=== PATIENT | female | born 1985 | race Caucasian/White ===

== ENCOUNTER → 2018-06-02 09:30 | Outpatient (CLI) | payer OTHER, SELFPAY ==
[2018-06-02 10:45] LABS: HCG Quantitative /Beta subunit 3.94 mIU/mL
== END ==
PROVIDERS: PCP Nurse Practitioner Family; Visit Provider Specialist
DX: N92.6 Irregular menstruation, unspecified (principal); Z32.01 Encounter for pregnancy test, result positive
CPT/HCPCS: 36415; 84702

== ENCOUNTER 2018-07-01 06:36 | Day surgery (SDC) | payer OTHER, SELFPAY ==
[2018-06-29 07:51] VITALS: BMI 24.7
--- NOTE | 2018-07-01 | PATH_ITS ---
[facility] Accession Number: [id number] . 01 Material submitted: . ENDOMETRIAL BIOPSY . 02 Diagnosis: Endometrium, Biopsy: Secretory endometrium with no evidence of neoplasia or hyperplasia. A few thick-walled vessels suggestive of polyp are present. MRV/07/04/2018 . 02 Electronically signed: . Lida Khan MD, Pathologist NPI- [id number] . 01 Gross description: . Received one formalin-filled container labeled with the patient's name and labeled endometrial biopsy. The specimen consists of approximately a 4 cc aggregate of tissue, mucoid material, and blood, which is filtered, wrapped, and entirely submitted in two cassettes. ([id number]) /FRR . 02 Pathologist provided ICD-10: N93.9 . 02 CPT . 892416 Performed at: 01 [facility] [address] [id number] MD Wyatt Ch MD Phone: [phone] Performed at: 02 [facility] [address] [place], [place] [id number] MD Lida Khan MD Phone: [phone]
[2018-07-01 07:05] VITALS: BMI 23.8
[2018-07-01 07:09] VITALS: BP 120/85; PULSE 77; RESP 15; TEMP 36.3; O2SAT 99
[2018-07-01] MEDS: LACTATED RINGERS 1,000 ML 42 ML IV (07:17)
--- NOTE | 2018-07-01 07:18 | PM.PREOP ---
Pre-operative Note Interval Note History & Physical reviewed/Exam performed by Physician: Yes Changes to H&P: No H&P completed within 30 days and has changed as indicated here:: see 06/22/18 out pt note
--- NOTE | 2018-07-01 07:24 | SUR.OPER ---
Lithotomy on padded OR bed, head on pillow, arms secured on padded arm boards at <90 degrees abduction. Legs secured in padded yellow fins stirrups.
[2018-07-01 08:31] VITALS: BP 111/77; PULSE 82; RESP 16; TEMP 36.4; O2SAT 100
[2018-07-01 08:36] VITALS: BP 122/87; PULSE 82; RESP 18; O2SAT 99
[2018-07-01 08:41] VITALS: BP 120/86; PULSE 77; RESP 14; TEMP 36.4; O2SAT 100
[2018-07-01 08:46] VITALS: BP 121/82; PULSE 79; RESP 14; O2SAT 100
--- NOTE | 2018-07-01 08:59 | PM.GYNOP.1 ---
Operative Date/Time/Diagnoses Date of procedure: 07/01/18 Time of procedure: 08:59 Pre-op diagnosis: Menorrhagia post miscarriage Post-op diagnosis: same Procedure: Procedures Operation Date: 07/01/18 07:45 Actual Procedures Side Surgeon p Hysteroscopy D&C Mini Dumont MD Indications: Heavy, prolonged bleeding after miscarriage Surgeon: Mini Dumont Anesthesia Type: General Operative Notes Findings: Probable retained products of conception Closure Type: not applicable Specimen(s): endometrial curettings (And resection of area of probable retained products of conception) Estimated blood loss (mL): 5 Blood products transfused: none Procedure in detail: The patient was brought to the operating room where she underwent general anesthesia. She was placed in low stirrups She was prepped and draped in usual sterile fashion with pulsatile stockings in place and functional, warming in place. No antibiotics were indicated. She was not catheterized as she had just emptied her bladder.. A single-tooth tenaculum was placed on the anterior lip of the cervix and the uterus dilated to #8 Hegar dilator. The hysteroscope was placed into the uterus with a sorbitol solution running and under constant suction. The resecting loop set at 70 W of cutting was used to resect the area of presumed retained products of conception. Care was taken not to remove too much normal endometrium. A endometrial curettage was performed. The fibroid and the endometrial curettage was sent to pathology. The patient went to recovery room in good condition counts of instruments and sponges were correct. Estimated blood loss less than 5 mL. The sorbitol solution I=O approximately 3000 mL. Complications: none Post-operative Condition: stable Disposition: same day surgery Plan for aftercare: Home when awake and stable, follow-up in 2 weeks unless she has bleeding fever or increasing pain
[2018-07-01 09:10] VITALS: BP 118/82; PULSE 80; RESP 15; TEMP 36.3; O2SAT 100
== END 2018-07-01 09:13 | disposition home or self-care (01) ==
PROVIDERS: PCP Nurse Practitioner Family; Visit Provider Specialist
PROC: 0UDB8ZZ Extraction of Endometrium, Via Natural or Artificial Opening Endoscopic (ICD-10-PCS; CPT 58558; principal; 2018-07-01 07:45)
DX: N93.9 Abnormal uterine and vaginal bleeding, unspecified (principal); F41.9 Anxiety disorder, unspecified
CPT/HCPCS: 58558; J1100; J1885; J2405; J2704

== ENCOUNTER → 2018-08-11 15:45 | Outpatient (CLI) | payer OTHER, SELFPAY | PROVIDERS: Visit Provider Specialist | DX: Z34.81 Encounter for supervision of other normal pregnancy, first trimester (principal) | CPT/HCPCS: 36415; 84702 ==

== ENCOUNTER → 2018-08-13 12:01 | Outpatient (CLI) | payer OTHER, SELFPAY ==
[2018-08-13 13:12] LABS: HCG Quantitative /Beta subunit 6000.1 mIU/mL
== END ==
PROVIDERS: Visit Provider Specialist
DX: Z34.81 Encounter for supervision of other normal pregnancy, first trimester (principal)
CPT/HCPCS: 36415; 84702

== ENCOUNTER → 2018-08-31 16:03 | Outpatient (CLI) | payer OTHER, SELFPAY ==
[2018-08-31 20:17] LABS: Urine N gonorrhoeae NOT DETECTED
[2018-08-31 20:25] LABS: Urine Chlamydia NOT DETECTED
== END ==
PROVIDERS: Visit Provider Specialist
DX: Z34.81 Encounter for supervision of other normal pregnancy, first trimester (principal); Z3A.01 Less than 8 weeks gestation of pregnancy
CPT/HCPCS: 87491; 87591

== ENCOUNTER → 2018-09-15 08:50 | Outpatient (CLI) | payer OTHER, SELFPAY ==
[2018-09-15 09:55] LABS: Add Manual Diff / Slide Review NO; Basophils Absolute Auto 0 /uL (0-100); Basophils Percent Auto 0.6 % (0-2); Eosinophils Absolute Auto 0 /uL (0-450); Eosinophils Percent Auto 0.7 % (2-4); Hematocrit 36.3 % (36-46); Hemoglobin 12.8 g/dL (12.0-16.0); Lymphocytes Absolute Auto 1300 /uL (1100-4500); Lymphocytes Percent Auto 28.5 % (25-40); Mean Corpuscular HGB Conc 35.3 % (30-36); Mean Corpuscular Volume 87.8 fL (80-100); Monocytes Absolute Auto 400 /uL (0-900); Monocytes Percent Auto 8.5 % (3-14); Neutrophils Absolute Auto 2900 /uL (1500-7000); Neutrophils Percent Auto 61.7 % (50-75); Platelet Count 247 X10^3/uL (150-400); Red Blood Cell Count 4.13 X10^6/uL (4.0-5.2); Red Cell Distribution Width 13.6 % (11.6-14.8); White Blood Cell Count 4.7 X10^3/uL (4.5-11.0)
[2018-09-15 11:29] LABS: Hepatitis B Surface Antigen NEGATIVE s/c (NEGATIVE); Rubella Antibody IgG 59.6 IU/mL (>15)
[2018-09-15 11:43] LABS: HIV 1 and 2 Antibody NEGATIVE (NEGATIVE); Hep C Virus Ab w/Reflex Quant NEGATIVE s/c (NEGATIVE)
[2018-09-15 13:12] LABS: Appearance Urine UA CLEAR; Bilirubin Urine UA NEGATIVE (NEGATIVE); Color Urine UA YELLOW; Glucose Urine UA NEGATIVE (Negative); Ketones Urine UA 3+ (NEGATIVE); Leukocyte Esterase Urine UA NEGATIVE (NEGATIVE); Nitrite Urine UA NEGATIVE (Negative); Occult Blood Urine UA 2+ (Negative); Protein Urine UA NEGATIVE (Negative); Specific Gravity Urine UA 1.015 (1.000-1.035); Urobilinogen Urine UA 0.2 E.U./dL (0.2)
[2018-09-17 13:22] LABS: RPR Screen Nonreactive (Nonreactive)
[2018-09-30 15:20] LABS: Informaseq SEE SEPARATE REPORTS
== END ==
PROVIDERS: Visit Provider Specialist
DX: O09.529 Supervision of elderly multigravida, unspecified trimester (principal)
CPT/HCPCS: 36415; 80055; 81003; 81507; 86703; 86787; 86803; 86850; 86900; 86901; 87086

== ENCOUNTER → 2018-09-29 13:30 | Oncology outpatient (ONC) | payer OTHER, SELFPAY ==
[2018-09-15 10:39] VITALS: BP 112/76; PULSE 82; RESP 20; TEMP 36.7; O2SAT 99
[2018-09-15] MEDS: LACTATED RINGERS 1,000 ML 500 ML IV (10:47)
[2018-09-15] MEDS: ONDANSETRON 4 MG/2 ML INJ IV (10:49)
[2018-09-29] MEDS: ONDANSETRON 8 MG in SODIUM CHLORIDE 0.9% 50 ML 216 ML IV (14:27)
[2018-09-29] MEDS: DEXTROSE 5%-LACTATED RINGERS 1,000 ML 500 ML IV ×2 (14:27→17:15)
--- NOTE | 2018-09-29 17:15 | PC.NURSE ---
Addendum entered by Annie Raza R.N. 09/29/18 19:49: Second bag of fluid infused. Pt reports feeling better, denies nausea. IV discontinued. Pt ambulated off floor to main parking lot with this RN. Denies dizziness. Original Note: Patient to from oncology, ambulated to room. Oriented to room/call light. First bag of fluids finished and second started.
== END ==
PROVIDERS: PCP Nurse Practitioner Family; Visit Provider Specialist
DX: O21.0 Mild hyperemesis gravidarum (principal); Z3A.11 11 weeks gestation of pregnancy
CPT/HCPCS: 36415; 80055; 81003; 81507; 86703; 86787; 86803; 86850; 86900; 86901; 87086; 96365; 96366; 96375; J2405; J7121

== ENCOUNTER → 2018-11-02 16:38 | Outpatient (CLI) | payer OTHER, SELFPAY ==
[2018-11-07 10:56] LABS: AFP, Serum 53.1 ng/mL; Calc Gestational Age 16.9; Cigarette Smoker N; Donated Egg NOT GIVEN; Donor Egg Age NOT GIVEN; Estriol, Free 0.93 ng/mL; Inhibin A, Dimeric 284 pg/mL; Maternal Weight 134 lbs; Number of Fetuses NOT GIVEN; Previous Pregnancy Down Syndro NOT GIVEN; hCG, MoM 1.46; hCG, Serum 45.5 IU/mL
== END ==
PROVIDERS: PCP Nurse Practitioner Family; Visit Provider Specialist
DX: Z34.02 Encounter for supervision of normal first pregnancy, second trimester (principal); Z3A.16 16 weeks gestation of pregnancy
CPT/HCPCS: 36415; 82105; 82677; 84702; 86336

== ENCOUNTER → 2018-11-25 10:13 | Outpatient (CLI) | payer OTHER, SELFPAY ==
--- NOTE | 2018-11-25 10:15 | DI.US.S_ITS ---
PROCEDURE: US OB >= 14 WEEKS FETUS INDICATIONS: ANATOMY SCAN OUTSIDE/PRIOR DATING DATA: Last menstrual period (LMP): Unknown. LMP-based estimated date of delivery (TAMMY): N./A.. First dating scan (date and location): 08/31/18. Estimated date of delivery (TAMMY) from first dating scan: 04/11/19. TECHNIQUE: Real-time scanning was performed of the fetus, with image documentation and biometric measurements. Endovaginal scanning: No COMPARISON: None. FINDINGS: General: A single living intrauterine gestation is present. Presentation: Vertex. Placenta: Placental position is anterior, without previa. Amniotic fluid index: 16.6 cm, normal range is 5-24 cm. heart rate: 145 beats per minute. Maternal cervical canal: 3.4 cm long. Normal lower limit is 2.5 cm. biometrics: Biparietal diameter: 20 weeks 1 day Head circumference: 20 weeks 2 days Abdominal circumference: 21 weeks Femur length: 20 weeks 1 day Estimated gestational age from initial scan: 20 weeks 3 days Composite gestational age from present scan: 20 weeks 3 days Estimated weight and percentile: 361 g; 52nd percentile Measurement variability for biometric dating: +/- 7 days from 14 weeks to 15 weeks 6 days gestation, +/- 10 days from 16 weeks to 21 weeks 6 days gestation, +/- 2 weeks from 22 weeks to 27 weeks 6 days gestation, +/- 3 weeks for 28 weeks gestation or later. weight reference: 4500 g or EFW >90/95% is considered macrosomia or large for gestational age. EFW <10% is small for gestational age. EFW 5% or less is considered intra-uterine growth restriction. Anatomic survey: Neuro: Ventricles are non-dilated at less than 10 mm. Cisterna magna is normal at 3-11 mm. Cerebellum is normal in size and morphology. Nuchal skin fold: Normal at less than 6 mm between 14-21 weeks gestational age. Face: Nose and lips, facial profile are normal. Spine: No evidence for spina bifida. Heart: Normal four-chamber heart and LVOT. RVOT not well-seen. Diaphragm: Diaphragm is intact. Stomach: Left-sided stomach is present. Kidneys: No hydronephrosis. Normal is less than 5 mm in 2nd trimester, less than 7 mm in 3rd trimester. Cord: 3-vessel cord has orthotopic insertion. Bladder: Normal in size. Extremities: All 4 extremities identified. IMPRESSION: 1. Single living IUP redemonstrated and interval growth is normal. 2. RVOT suboptimally visualized; otherwise normal anatomic survey. Dictated by: Lars SPEAR Interpreted: Felipe Horner MD on 11/25/2018 at 11:47 Approved by: Felipe Horner M.D. on 11/25/2018 at 12:20
== END ==
PROVIDERS: PCP Nurse Practitioner Family; Visit Provider Specialist
DX: Z34.82 Encounter for supervision of other normal pregnancy, second trimester (principal); Z3A.20 20 weeks gestation of pregnancy
CPT/HCPCS: 76811

== ENCOUNTER → 2018-12-28 10:28 | Outpatient (CLI) | payer OTHER, SELFPAY ==
[2018-12-28 11:58] LABS: Hematocrit 31.4 % (36-46); Hemoglobin 10.9 g/dL (12.0-16.0)
[2018-12-28 12:46] LABS: GTT (PREG) 1 Hour PP 50gm Dose 106 mg/dL (76-139)
== END ==
PROVIDERS: PCP Nurse Practitioner Family; Visit Provider Specialist
DX: Z34.82 Encounter for supervision of other normal pregnancy, second trimester (principal); Z3A.24 24 weeks gestation of pregnancy
CPT/HCPCS: 36415; 82950; 85014; 85018

== ENCOUNTER 2019-02-21 11:20 | Outpatient (CLI) | payer OTHER, SELFPAY ==
[2019-02-21 11:51] LABS: Appearance Urine UA CLEAR; Bilirubin Urine UA NEGATIVE (NEGATIVE); Color Urine UA YELLOW; Glucose Urine UA NEGATIVE (Negative); Ketones Urine UA NEGATIVE (NEGATIVE); Leukocyte Esterase Urine UA NEGATIVE (NEGATIVE); Nitrite Urine UA NEGATIVE (Negative); Occult Blood Urine UA 1+ (Negative); Protein Urine UA NEGATIVE (Negative); Specific Gravity Urine UA <=1.005 (1.000-1.035); Urobilinogen Urine UA 0.2 E.U./dL (0.2)
[2019-02-21 11:52] LABS: Add Manual Diff / Slide Review NO; Basophils Absolute Auto 0 /uL (0-100); Basophils Percent Auto 0.6 % (0-2); Eosinophils Absolute Auto 100 /uL (0-450); Eosinophils Percent Auto 1.4 % (2-4); Hematocrit 36.6 % (36-46); Hemoglobin 12.6 g/dL (12.0-16.0); Lymphocytes Absolute Auto 1700 /uL (1100-4500); Lymphocytes Percent Auto 23.3 % (25-40); Mean Corpuscular HGB Conc 34.4 % (30-36); Mean Corpuscular Volume 92.9 fL (80-100); Monocytes Absolute Auto 500 /uL (0-900); Neutrophils Absolute Auto 4900 /uL (1500-7000); Neutrophils Percent Auto 67.7 % (50-75); Platelet Count 223 X10^3/uL (150-400); Red Blood Cell Count 3.95 X10^6/uL (4.0-5.2); Red Cell Distribution Width 12.8 % (11.6-14.8); White Blood Cell Count 7.2 X10^3/uL (4.5-11.0)
[2019-02-21 11:59] LABS: RBC Urine 1-5/HPF (0-5/HPF); Squamous Epithelial Cell Urine 0-1 /HPF (0-5/HPF); WBC Urine 0-1/HPF (0-5/HPF)
[2019-02-21 12:00] LABS: Bacteria Urine Few (2-10); Culture Indicated Urine Cult Not Indicated
[2019-02-21 12:03] LABS: Aspartate Aminotransferase 27 IU/L (14-36); Blood Urea Nitrogen 5 mg/dL (7-17); Estimated Glomerular Filt Rate > 60.0 mL/min (>60); Uric Acid 4.3 mg/dL (2.5-6.2)
--- NOTE | 2019-02-21 12:55 | P.TNLD_ITS ---
Visit Information Visit Information Date of evaluation: 02/21/19 Primary OB Provider: Mini Dumont On-call OB Provider: Elidia Perrin Reason for Evaluation: Yes other Comments/Additional reasons for admission: This patient is a 33-year-old 0- 2 at 32 and 5 with a history of preeclampsia at term in her 2 prior pregnancies and a history of migraines, presenting for evaluation for preeclampsia. The patient reports starting yesterday, she developed her typical migraine symptoms, including headache, eye pain without visual changes, and nausea. She reports using Tylenol and small amount of caffeine without relief, and presented for evaluation because of her history. She denies any obstetrical complaints, reporting good movement, no contractions, no vaginal bleeding, no loss of fluid. This has been otherwise uncomplicated to date. The patient reports using a Triptan when not with good relief, but is concerned about the safety of this in . In her prior pregnancies, she developed preeclampsia without severe features at 37 and 39 weeks, and was delivered without requiring magnesium therapy. Vital Signs Vital Signs: 106-114/60s-80s, HR 70s-80s [facility] Medical History Abnormal Pap smear of cervix (Chronic ~2001) Anxiety (Chronic) Medical (Acute ~02/2018) Preeclampsia (Acute) SAB (spontaneous ) (Acute) Social History Smoking Status: Never smoker Review of Systems Constitutional Constitutional: Reports as per HPI Eyes Eyes: Reports as per HPI Cardiovascular Cardiovascular: Reports as per HPI Respiratory Respiratory: Reports as per HPI Gastrointestinal Gastrointestinal: Reports system reviewed and no additional complaints, except as documented Genitourinary Genitourinary: Reports system reviewed and no additional complaints, except as documented Musculoskeletal Musculoskeletal: Reports system reviewed; no additional complaints, except as documented Neurologic Neurologic: Reports as per HPI Exam Narrative Exam Narrative: Patient resting comfortably in bed, smiling. Patient drove herself to hospital without issue Extrem General: normal to inspection Other: No extremity edema. Objective Labs Result Diagrams: 02/21/19 11:40 02/21/19 11:40 Labs: Laboratory Results - last 24 hr 02/21/19 02/21/19 02/21/19 11:40 11:40 11:40 WBC 7.2 RBC 3.95 L Hgb 12.6 Hct 36.6 MCV 92.9 MCH 32.0 MCHC 34.4 RDW 12.8 Plt Count 223 Neut % (Auto) 67.7 Lymph % (Auto) 23.3 L [place] % (Auto) 7.0 Eos % (Auto) 1.4 L Baso % (Auto) 0.6 Neut # (Auto) 4900 Lymph # (Auto) 1700 [place] # (Auto) 500 Eos # (Auto) 100 Baso # (Auto) 0 BUN 5 L Creatinine 0.50 L Estimated GFR > 60.0 BUN/Creatinine Ratio 10.0 Uric Acid 4.3 AST 27 Urine Color Yellow Urine Appearance Clear Urine pH 7.0 Ur Specific [place] <=1.005 Urine Protein Negative Urine Glucose (UA) Negative Urine Ketones Negative Urine Occult Blood 1+ H Urine Nitrate Negative Urine Bilirubin Negative Urine Urobilinogen 0.2 Ur Leukocyte Esterase Negative Urine RBC 1-5/hpf Urine WBC 0-1/hpf Ur Squamous Epith Cells 0-1 /hpf Urine Bacteria Few (2-10) H Ur Culture Indicated? Cult not indicated Evaluation Evaluation Baseline heart rate: 125 Variability: Average (6-10) monitor accelerations: Present monitor decelerations: Absent Category of Tracing: I Laboratory results: Laboratory Tests 02/21/19 02/21/19 02/21/19 11:40 11:40 11:40 WBC 7.2 RBC 3.95 L Hgb 12.6 Hct 36.6 MCV 92.9 MCH 32.0 MCHC 34.4 RDW 12.8 Plt Count 223 Neut % (Auto) 67.7 Lymph % (Auto) 23.3 L [place] % (Auto) 7.0 Eos % (Auto) 1.4 L Baso % (Auto) 0.6 Neut # (Auto) 4900 Lymph # (Auto) 1700 [place] # (Auto) 500 Eos # (Auto) 100 Baso # (Auto) 0 BUN 5 L Creatinine 0.50 L Estimated GFR > 60.0 BUN/Creatinine Ratio 10.0 Uric Acid 4.3 AST 27 Urine Color Yellow Urine Appearance Clear Urine pH 7.0 Ur Specific [place] <=1.005 Urine Protein Negative Urine Glucose (UA) Negative Urine Ketones Negative Urine Occult Blood 1+ H Urine Nitrate Negative Urine Bilirubin Negative Urine Urobilinogen 0.2 Ur Leukocyte Esterase Negative Urine RBC 1-5/hpf Urine WBC 0-1/hpf Ur Squamous Epith Cells 0-1 /hpf Urine Bacteria Few (2-10) H Ur Culture Indicated? Cult not indicated Diagnosis, Plan/Disposition Final Diagnosis (1) Migraine: Current Visit: Yes Status: Acute Problem details: This patient appears to have a migraine headache consistent with her prior migraine headaches. She is normotensive here, with normal preeclampsia labs, and no symptoms that are not consistent with her prior headache history. Medications at of previously worked for her are concerning during her , and we encouraged her to use Tylenol, rest, caffeine, and antiemetics as needed. We discussed that should her symptoms persist or worsen, she may require an MRI of the head to assess the source for headaches. We also discussed that if her symptoms worsen, or if she develops symptoms with inconsistent with her prior migraine history, she should return for further evaluation. The patient vocalized understanding. We discussed antepartum precautions. Patient is to see Dr. Dumont tomorrow morning for her scheduled OB follow-up. Plan/Disposition OB Disposition: home
[2019-02-21] MEDS: METOCLOPRAMIDE HCL 5 MG TABLET PO (13:22)
== END 2019-02-21 13:24 | disposition home or self-care (01) ==
LOC: LABOR 13:00 → OB 02-22 10:49
PROVIDERS: PCP Nurse Practitioner Family; Visit Provider Specialist
DX: O26.23 Pregnancy care for patient with recurrent pregnancy loss, third trimester (principal); O09.523 Supervision of elderly multigravida, third trimester; Z3A.32 32 weeks gestation of pregnancy; G43.909 Migraine, unspecified, not intractable, without status migrainosus
CPT/HCPCS: 36415; 59025; 81003; 81015; 84450; 84550; 85025; G0378; G0379

== ENCOUNTER → 2019-03-07 09:27 | Outpatient (CLI) | payer OTHER, SELFPAY | PROVIDERS: PCP Nurse Practitioner Family; Visit Provider Obstetrics & Gynecology | DX: N39.0 Urinary tract infection, site not specified (principal) | CPT/HCPCS: 87086 ==

== ENCOUNTER → 2019-03-22 08:43 | Outpatient (CLI) | payer OTHER, SELFPAY ==
[2019-03-23 13:05] LABS: Strep Grp B PCR NEG for Grp B Strep
== END ==
PROVIDERS: PCP Nurse Practitioner Family; Visit Provider Specialist
DX: Z34.83 Encounter for supervision of other normal pregnancy, third trimester (principal); Z3A.36 36 weeks gestation of pregnancy
CPT/HCPCS: 87077; 87086; 87653

== ENCOUNTER 2019-03-23 22:34 | Outpatient (CLI) | payer OTHER, SELFPAY ==
--- NOTE | 2019-03-24 07:35 | PM.OBTRLD ---
Visit Information Visit Information Date of evaluation: 03/23/19 Primary OB Provider: Mini Dumont On-call OB Provider: Court Gomes Reason for Evaluation: Yes rule out labor Vital Signs Vital Signs: T 97.4 BP 125/87 P 78 PFSH Medical History Abnormal Pap smear of cervix (Chronic ~2001) Anxiety (Chronic) Medical (Acute ~02/2018) Preeclampsia (Acute) SAB (spontaneous ) (Acute) Social History Smoking Status: Never smoker Evaluation Evaluation Baseline heart rate: 140 Variability: Moderate (11-25) monitor accelerations: Absent monitor decelerations: Absent Contraction Frequency (minutes): 4 Category of Tracing: I Cervical dilation (cm): 1 Cervical effacement (%): 50 station: -4 Diagnosis, Plan/Disposition Final Diagnosis (1) 37 weeks gestation of : Current Visit: Yes Status: Acute Plan/Disposition Plan: 33 year old at 37 weeks gestation with regular mild contractions. NST reactive. SVE /high her per RN. Likely kirby [place] vs early labor. Patient will follow up with Dr. Dumont as scheduled next week or return to the center as needed. OB Disposition: home
== END 2019-03-23 23:25 | disposition home or self-care (01) ==
LOC: OB 03-24 11:53
PROVIDERS: PCP Nurse Practitioner Family; Visit Provider Family Medicine
DX: O26.23 Pregnancy care for patient with recurrent pregnancy loss, third trimester (principal); O09.523 Supervision of elderly multigravida, third trimester; Z3A.37 37 weeks gestation of pregnancy
CPT/HCPCS: 59025; G0378; G0379

== ENCOUNTER → 2019-03-29 08:15 | Outpatient (CLI) | payer OTHER, SELFPAY ==
[2019-03-29 09:07] LABS: Add Manual Diff / Slide Review NO; Basophils Absolute Auto 0 /uL (0-100); Basophils Percent Auto 0.7 % (0-2); Eosinophils Absolute Auto 200 /uL (0-450); Hematocrit 36.3 % (36-46); Hemoglobin 12.6 g/dL (12.0-16.0); Lymphocytes Absolute Auto 1800 /uL (1100-4500); Lymphocytes Percent Auto 29.3 % (25-40); Mean Corpuscular HGB Conc 34.6 % (30-36); Mean Corpuscular Volume 92.6 fL (80-100); Monocytes Absolute Auto 600 /uL (0-900); Monocytes Percent Auto 9.8 % (3-14); Neutrophils Absolute Auto 3400 /uL (1500-7000); Neutrophils Percent Auto 56.2 % (50-75); Platelet Count 200 X10^3/uL (150-400); Red Blood Cell Count 3.92 X10^6/uL (4.0-5.2); Red Cell Distribution Width 13.4 % (11.6-14.8)
[2019-03-29 09:43] LABS: Alanine Aminotransferase 12 IU/L (<35); Aspartate Aminotransferase 28 IU/L (14-36); BUN Creatinine Ratio 6.7 (6-22); Blood Urea Nitrogen 4 mg/dL (7-17); Estimated Glomerular Filt Rate > 60.0 mL/min (>60); Uric Acid 5.5 mg/dL (2.5-6.2)
== END ==
PROVIDERS: Visit Provider Specialist
DX: O16.3 Unspecified maternal hypertension, third trimester (principal)
CPT/HCPCS: 36415; 82565; 84450; 84460; 84520; 84550; 85025

== ENCOUNTER 2019-04-01 21:06 | Inpatient (IN) | payer OTHER, SELFPAY ==
[2019-04-01 21:47] LABS: Add Manual Diff / Slide Review NO; Basophils Absolute Auto 0 /uL (0-100); Basophils Percent Auto 0.4 % (0-2); Eosinophils Absolute Auto 300 /uL (0-450); Hematocrit 36.7 % (36-46); Hemoglobin 12.9 g/dL (12.0-16.0); Lymphocytes Absolute Auto 2600 /uL (1100-4500); Lymphocytes Percent Auto 25.6 % (25-40); Mean Corpuscular HGB Conc 35.2 % (30-36); Mean Corpuscular Hemoglobin 32.4 PG (26-34); Mean Corpuscular Volume 92.1 fL (80-100); Monocytes Absolute Auto 700 /uL (0-900); Monocytes Percent Auto 6.9 % (3-14); Neutrophils Absolute Auto 6600 /uL (1500-7000); Neutrophils Percent Auto 64.1 % (50-75); Platelet Count 193 X10^3/uL (150-400); Red Blood Cell Count 3.99 X10^6/uL (4.0-5.2); Red Cell Distribution Width 13.2 % (11.6-14.8); White Blood Cell Count 10.3 X10^3/uL (4.5-11.0)
--- NOTE | 2019-04-01 22:48 | PM.OBHP.1 ---
OB HPI Date/Time Date of admission: 04/01/19 Date Patient Seen: 04/01/19 Time Patient Seen: 22:49 History of Present Condition Chief complaint: EVAL OF LABOR : 5 Para: 2 Estimated Date of Delivery: 04/13/19 Estimated Gestational Age (weeks): 38 Narrative: Teagan Harman is a 34 year old female admitted in active labor with spontaneous rupture membranes History of Present care: good care, initiated at week # (7), number of visits (13) and pounds weight gain (12) Dating criteria: LMP confirmed by 1st trimester US Ultrasounds: normal mid trimester US Obstetrical complications: none Medical complications: none Preadmission Labs Blood type: A (+) positive -: Antibody screen: negative, GBS status: negative, HBsAG: negative, HIV: negative and RPR/VDLR: negative -: Chlamydia screen: not detected and Gonorrhea screen: not detected -: Rubella: immune and Varicella: immune HCAB: negative Cell-free DNA: Normal female 1 hr GTT: 106 Prior (ies) History: 03/11/2010 39 week vaginal delivery epidural catheter induced for preeclampsia 04/16/2012 38 week vaginal delivery epidural catheter induced for hypertension Evaluation Evaluation Baseline heart rate: 140 Variability: Moderate (11-25) monitor accelerations: Present monitor decelerations: Absent Contraction Frequency (minutes): 3 Uterine Contraction Intensity: Moderate Category of Tracing: I Cervical dilation (cm): 2 Cervical effacement (%): 90 station: 0 Laboratory results: Laboratory Tests 04/01/19 04/01/19 21:25 21:25 WBC 10.3 RBC 3.99 L Hgb 12.9 Hct 36.7 MCV 92.1 MCH 32.4 MCHC 35.2 RDW 13.2 Plt Count 193 Neut % (Auto) 64.1 Lymph % (Auto) 25.6 [place] % (Auto) 6.9 Eos % (Auto) 3.0 Baso % (Auto) 0.4 Neut # (Auto) 6600 Lymph # (Auto) 2600 [place] # (Auto) 700 Eos # (Auto) 300 Baso # (Auto) 0 Blood Type A Positive Antibody Screen Negative PFSH Social History Smoking Status: Never smoker Meds Home Medications and Allergies Home Medications Medication Instructions Recorded Confirmed Type omega-3 fatty acids 1,000 mg 1,000 mg PO DAILY 08/29/18 08/29/18 History capsule prenat.vits,abad,jpb-tjdz-jdavq 1 tab PO DAILY 08/29/18 08/29/18 History cephalexin 500 mg capsule 500 mg PO BID #10 cap 03/07/19 03/07/19 Rx Allergies Allergy/AdvReac Type Severity Reaction Status Date / Time kiwi Allergy Anaphylaxis Verified 08/29/18 09:19 Review of Systems Review of Systems Narrative: Patient denies any headaches, scotomata, epigastric pain. Spontaneous rupture membranes clear fluid. Good movement. No fevers. ROS Unobtainable: All systems reviewed & are unremarkable except as noted in HPI and below Exam Vital Signs (past 8 hours): Blood pressure 133/85, pulse 74 Narrative Exam Narrative: HEENT exam within normal limits. Lungs are clear to auscultation percussion. Heart is regular rate and rhythm no S3-S4 or murmurs. Abdomen is soft, nontender with vertex fetus. Extremities without edema and nontender. Objective Labs Result Diagrams: 04/01/19 21:25 Labs: Laboratory Results - last 24 hr 04/01/19 04/01/19 21:25 21:25 WBC 10.3 RBC 3.99 L Hgb 12.9 Hct 36.7 MCV 92.1 MCH 32.4 MCHC 35.2 RDW 13.2 Plt Count 193 Neut % (Auto) 64.1 Lymph % (Auto) 25.6 [place] % (Auto) 6.9 Eos % (Auto) 3.0 Baso % (Auto) 0.4 Neut # (Auto) 6600 Lymph # (Auto) 2600 [place] # (Auto) 700 Eos # (Auto) 300 Baso # (Auto) 0 Blood Type A Positive Antibody Screen Negative Assessment and Plan Assessment and Plan Assessment and Plan narrative: 38 week gestation with spontaneous rupture membranes in active labor. Anticipate vaginal delivery. Patient is requesting epidural catheter. Time Spent with Patient Total time spent with greater than 50% in coordination of care (as documented) at patient's floor/unit and/or counseling patient:: 15-24 minutes
--- NOTE | 2019-04-02 | PM.OBPRVD ---
Labor & Delivery Delivery date: 04/02/19 Intrapartal events: None Cervical ripening method: none Induction method: none Delivery monitor: external FHT and external uterine Route of delivery: L&D Laceration Description: None Estimated blood loss (mL): 100 Anesthesia type: Epidural Narrative: Patient arrived on Labor and delivery with spontaneous rupture of membranes in active labor. She received an epidural catheter for pain control. heart tones category 1 to category 2 throughout labor. She delivered spontaneously, over an intact perineum. The viable female infant was placed on maternal abdomen. After cord stopped pulsating the cord was clamped, cut, and cord bloods obtained. The placenta delivered spontaneously, intact, with 3 vessels. There were no cervical, vaginal, or perineal tears. Both mother doing well. Baby 1: Infant gender: Female Presentation: vertex position: Right Occiput Anterior Placenta delivery description: Spontaneous cord vessel description: 3 Vessels score (1 min): 8 score (5 min): 9 Plan for aftercare: Routine care
[2019-04-02] MEDS: DERMOPLAST SPRAY 20% 60 ML 1 SPRAY TOP (01:03)
[2019-04-02] MEDS: IBUPROFEN 600 MG TABLET PO ×3 (01:04→15:48)
[2019-04-02] MEDS: LANOLIN OINT 7 GM 1 APPLIC TOP (01:04)
[2019-04-02] MEDS: OXYTOCIN 10 UNIT/ML VIAL IM (01:05)
[2019-04-02 07:16] VITALS: BP 110/68
[2019-04-02 08:38] LABS: Hematocrit 36.4 % (36-46); Hemoglobin 12.7 g/dL (12.0-16.0)
[2019-04-02] MEDS: DOCUSATE 100 MG CAPSULE PO (09:05)
--- NOTE | 2019-04-02 09:37 | PM.OBDS.1 ---
Discharge Providers Provider Date of admission: 04/01/19 21:06 Discharge Date: 04/02/19 Consults: 04/02/19 23:57 Consult to Drainage Design Coordinator Routine Comment: Discharge provider: Mini Dumont MD Summary Hospital Course Date Patient Seen: 04/02/19 Time Patient Seen: 09:38 Hospital Course: Patient arrived on Labor and delivery in active labor. She received an epidural catheter for pain control. She had a spontaneous vaginal delivery with no tears. Both she and the baby are doing well. Peripartum Data Infant Delivery Method: Natural Vaginal Laceration description: None Procedures: Epidural catheter, vaginal delivery. complications: none [place] 1: Gender: Female Disposition of : home Discharge Diagnosis (1) Vaginal delivery: Status: Acute Status at Discharge Cognitive/behavioral status at discharge: oriented Functional status at discharge: independent ambulation Overall status at discharge: patient is progressing back to baseline Time Spent with Patient Time attestation: Total time spent providing and/or coordinating discharge services: Time spent: Less than 30 minutes Objective Labs Result Diagrams: 04/02/19 08:25 Labs: Laboratory Results - last 24 hr 04/01/19 04/01/19 04/02/19 21:25 21:25 08:25 WBC 10.3 RBC 3.99 L Hgb 12.9 12.7 Hct 36.7 36.4 MCV 92.1 MCH 32.4 MCHC 35.2 RDW 13.2 Plt Count 193 Neut % (Auto) 64.1 Lymph % (Auto) 25.6 [place] % (Auto) 6.9 Eos % (Auto) 3.0 Baso % (Auto) 0.4 Neut # (Auto) 6600 Lymph # (Auto) 2600 [place] # (Auto) 700 Eos # (Auto) 300 Baso # (Auto) 0 Blood Type A Positive Antibody Screen Negative Exam Vital Signs (past 8 hours): - Blood pressure 125/82, pulse 69, temperature 98? 04/02/19 07:16 Blood Pressure 110/68 Narrative Exam Narrative: Abdomen is soft, nontender. Uterus is firm, U -3, nontender. Mild lochia. Extremities without edema and nontender. Patient is Rh positive and rubella immune. She received the Tdap in the 3rd trimester. Discharge Plan Discharge Plan Patient Disposition: Home Discharge orders & Medications Prescriptions: Continued omega-3 fatty acids [Fish Oil Concentrate] 1,000 mg capsule 1,000 mg PO DAILY RF: 0 prenat.vits,abad,ftn-cfpa-subub tablet 1 tab PO DAILY RF: 0 Follow up/Referrals: Mini Dumont MD [Physician] - 1 Month Diet/Activity/Treatments Diet: Regular Activity: Nothing in vagina for 4 weeks Skin/Wound/Dressing Care Report to your healthcare provider any signs of infection, such as:: chills, fever
[2019-04-02 15:05] VITALS: BP 125/84; PULSE 69; RESP 18; TEMP 36.7
== END 2019-04-02 16:22 | disposition home or self-care (01) | DRG 807 ==
PROVIDERS: Admitting Provider Specialist; Visit Provider Specialist
DX: O80 Encounter for full-term uncomplicated delivery (principal); Z37.0 Single live birth; Z3A.38 38 weeks gestation of pregnancy
CPT/HCPCS: 01967; 36415; 59025; 59050; 59400; 85014; 85018; 85025; 86850; 86900; 86901; G0379; J2590

== ENCOUNTER → 2024-05-03 11:51 | Outpatient (CLI) | payer OTHER, SELFPAY | PROVIDERS: PCP Nurse Practitioner Family; Visit Provider Specialist | DX: R31.9 Hematuria, unspecified (principal) | CPT/HCPCS: 87086 ==